=== PATIENT | female | born 1940 | race Caucasian/White ===

== ENCOUNTER → 2023-12-12 10:09 | Outpatient (REF) | payer OTHER, SELFPAY | LOC: PAVMRI 10:09 | PROVIDERS: ATTENDING PHYSICIAN Specialist; FAMILY PHYSICIAN Internal Medicine | DX: M54.16 Radiculopathy, lumbar region (principal) | CPT/HCPCS: 72148 ==

== ENCOUNTER → 2024-04-13 15:04 | Outpatient (REF) | payer OTHER, SELFPAY | LOC: RCS 15:04 | PROVIDERS: ATTENDING PHYSICIAN Internal Medicine Cardiovascular Disease; FAMILY PHYSICIAN Internal Medicine | DX: R00.2 Palpitations (principal); I25.10 Atherosclerotic heart disease of native coronary artery without angina pectoris; I10 Essential (primary) hypertension | CPT/HCPCS: 93005 ==

== ENCOUNTER → 2024-05-01 09:07 | Outpatient (REF) | payer OTHER, SELFPAY | LOC: RCS 09:07 | PROVIDERS: ATTENDING PHYSICIAN Internal Medicine Cardiovascular Disease; FAMILY PHYSICIAN Internal Medicine | DX: R00.2 Palpitations (principal) | CPT/HCPCS: 93225; 93226 ==

== ENCOUNTER → 2024-08-11 10:06 | Outpatient (REF) | payer OTHER, SELFPAY | LOC: RCS 10:06 | PROVIDERS: ATTENDING PHYSICIAN Student in an Organized Health Care Education/Training Program; FAMILY PHYSICIAN Internal Medicine | DX: I49.3 Ventricular premature depolarization (principal) | CPT/HCPCS: 93225; 93226 ==

== ENCOUNTER → 2024-10-21 08:49 | Outpatient (REF) | payer OTHER, SELFPAY | LOC: HWWDC 08:49 | PROVIDERS: ATTENDING PHYSICIAN Family Medicine | DX: Z12.31 Encounter for screening mammogram for malignant neoplasm of breast (principal); Z78.0 Asymptomatic menopausal state | CPT/HCPCS: 77063; 77067; 77080 ==

== ENCOUNTER → 2025-05-10 13:56 | Outpatient (REF) | payer OTHER, SELFPAY | LOC: HWRAD 13:56 | PROVIDERS: ATTENDING PHYSICIAN Internal Medicine Endocrinology, Diabetes & Metabolism; FAMILY PHYSICIAN Internal Medicine | DX: I25.10 Atherosclerotic heart disease of native coronary artery without angina pectoris (principal); R06.00 Dyspnea, unspecified; E06.3 Autoimmune thyroiditis | CPT/HCPCS: 76536; 93306 ==

== ENCOUNTER → 2025-09-01 14:10 | Outpatient (REF) | payer OTHER, SELFPAY ==
[2025-09-01 14:57] LABS: Urine Character Slightly Cloudy (Clear)
[2025-09-01 15:03] LABS: Urine Squamous Cell 0-2 /LPF (Few); Urine White Cell 50-60 /HPF (0-5)
== END ==
LOC: REG 14:10
PROVIDERS: ATTENDING PHYSICIAN Obstetrics & Gynecology; FAMILY PHYSICIAN Internal Medicine
DX: N39.0 Urinary tract infection, site not specified (principal)
CPT/HCPCS: 81003; 81015; 87077; 87086; 87186

== ENCOUNTER 2025-09-04 17:48 | Emergency (ER) | payer OTHER, SELFPAY ==
[2025-09-04 17:53] VITALS: BP 146/71
[2025-09-04 18:10] LABS: Hematocrit 39.0 % (37.0-47.0); Hemoglobin 13.8 g/dL (12.0-16.0); Mean Corp Hgb Conc. 35.4 g/dL (33.0-37.0); Mean Corpuscular Volume 84.1 fL (81.0-99.0); Nucleated Red Blood Cells % 0 %; Platelet Count 141 10^3/uL (130-400); Red Cell Dist. Width 13.4 % (11.5-14.5)
[2025-09-04 18:32] LABS: COVID-19 Antigen Negative (Negative)
[2025-09-04 18:35] LABS: ALT (SGPT) 23 U/L (0-35); AST (SGOT) 27 U/L (14-36); Albumin 3.8 g/dl (3.5-5.0); Alkaline Phosphatase 83 U/L (38-126); Blood Urea Nitrogen 29 mg/dl (7-17); Calcium 9.0 mg/dl (8.4-10.2); Carbon Dioxide 24 mmol/L (22-30); Chloride 95 mmol/L (98-107); Glucose 131 mg/dl (70-99); Potassium 3.1 mmol/L (3.5-5.1); Sodium 129 mmol/L (135-145); Total Protein 6.7 g/dl (6.3-8.2); eGFR 55.55
[2025-09-04] MEDS: ZOFRAN ODT (ORALLY DISINTEGRATING) 4 MG PO ×2 (19:32→23:03)
[2025-09-04 20:16] VITALS: BMI 23.8
--- NOTE | 2025-09-04 20:55 | ED.GENMED ---
History of Present Illness
General
Chief Complaint: Cold/Flu/URI Symptoms
Source: patient
Exam Limitations: none
Time Seen by Provider: 09/04/25 20:07
Nursing documentation reviewed up to this point in time: agreed with
History of Present Illness
History of Present Illness:
85-year-old female past ministry of CHF hypertension hyperlipidemia, CAD status post multiple stents presenting to the emergency department today with concerns of nausea vomiting cough as well as chills over the past 2 days. Has had some nasal
congestion as well. Symptoms have been persisting she denies any worsening denies any specific chest pain other than occasionally when coughing. Denies significant shortness of breath. Has had decreased appetite and decreased oral intake.
Past History
Past History
ED Past Medical History: CAD, Cancer, COPD, GERD, HTN, Hypercholesterolemia, MT and Hypothyroidism
ED Past Surgical History: Cardiac (Stents), Gynecological (Hysterectomy) and Other (Partial cystectomy)
Social History
Tobacco: Former smoker
Alcohol: Occasional
Personal:
Living: with family
Review of Systems
Review of Systems
Allergies reviewed?: Yes
All Other Systems: ROS reviewed and negative except as documented in HPI and ROS
Phy Exam
Physical Exam
Physical Exam:
GENERAL: Alert , in no apparent distress
EYE: pupils equal and reactive
NECK: Supple, no significant adenopathy.
ENT: Swollen boggy nasal turbinates, o/p clr, mmm.
CARDIAC: Regular rate and rhythm .
LUNGS: Clear breath sounds bilaterally, no acute respiratory distress, no wheezes/rales/rhonchi
ABDOMEN: Soft, without focal tenderness, no r/g, no cvat
NEUROLOGICAL: Alert and oriented, no focal neuro deficits
SKIN: Warm and dry, skin intact.
MUSCULOSKELETAL: No edema, well perfused.
PSYCH: Normal and appropriate interaction.
Course
Orders/Labs/Results
Orders:
Orders
09/04/25 18:00
COVID-19 Antigen Urgent
Source: Nasal Swab
INF RAPID [Influenza A+B Rapid Molecular] Urgent
CHIDI Source: Nasal Swab
Specimen Description:
09/04/25 18:04
Complete Blood Count/With Diff Urgent
Comprehensive Metabolic Panel Urgent
09/04/25 19:27
Ondansetron HCl [Zofran] 4 mg .ROUTE .STK-MED ONE
09/04/25 19:29
Ondansetron Orally Disint [Zofran Odt (Orally Disintegrating)] 4 mg PO NOW STA
09/04/25 20:38
EKG [Electrocardiogram (*1)] Urgent
Reason for Study: Fatigue / Weakness
EKG- Treatment ONCE
Chest [CR Chest - 2 Views ] Urgent
Comment:
Reason For Exam: cough efever
09/04/25 22:44
Ondansetron Orally Disint [Zofran Odt (Orally Disintegrating)] 4 mg PO NOW STA
Abnormal Lab Results
09/04/25
18:04
WBC 20.7 H 10^3/uL
(4.8-10.8)
Abs Immat Gran (auto) 0.1 H 10^3/uL
(0-0.05)
Absolute Neuts (auto) 17.9 H 10^3/uL
(1.4-6.5)
Absolute Lymphs (auto) 0.9 L 10^3/uL
(1.2-3.4)
Absolute Monos (auto) 1.7 H 10^3/uL
(0.1-0.6)
Neutrophils % 86.7 H %
(42.2-75.2)
Lymphocytes % 4.5 L %
(20.5-51.1)
Sodium 129 L mmol/L
(135-145)
Potassium 3.1 L mmol/L
(3.5-5.1)
Chloride 95 L mmol/L
(98-107)
BUN 29 H mg/dl
(7-17)
Glucose 131 H mg/dl
(70-99)
09/04/25 18:04
09/04/25 18:04
Vital Signs
Initial and Last Documented VS:
Initial Vital Signs
Temp Pulse Resp BP Pulse Ox
99.7 F 97 18 146/71 93
09/04/25 17:53 09/04/25 17:53 09/04/25 17:53 09/04/25 17:53 09/04/25 17:53
Last Documented Vital Signs
Temp Pulse Resp BP Pulse Ox
99.7 F 81 16 146/71 96
09/04/25 17:53 09/04/25 20:16 09/04/25 20:16 09/04/25 17:53 09/04/25 20:58
MDM/Problems Addressed
MDM/Problems Addressed:
85-year-old female presenting with concerns of nausea vomiting cough chills over the past 2 days. On arrival vital signs showing slight elevation of temperature of 99.7 but otherwise pulse ox in the mid 90s heart rate normal slightly elevated blood
pressure. Labs are obtained showing white count 20.7. Other labs showing slightly low sodium level and potential dehydration with BUN to creatinine level ratio elevated. Otherwise here patient was watched for multiple hours in no distress able to
tolerate by mouth vital signs remaining normal in the 80s heart rate respiratory rate in the teens blood pressure normal pulse ox in the high 90s. Chest x-ray did not show any emergent findings only EKG without emergent findings labs were discussed
with the patient indicating some degree of dehydration and decreased oral intake but she was able to tolerate by mouth here well. She was advised for significant increase in electrolyte intake and advised for close outpatient follow-up. Return
precautions were given.
*Pulse Oximetry
SaO2: 96
Oxygen Mode of Delivery: Room air
Patient hypoxic: no (96)
*Critical Care Note
Total Time (30-74mins, 75-104mins- exclusive of procedures): Not Applicable
ED Attending Note
-
Portions of this chart may have been created with voice recognition software.� Occasional wrong word or��sound alike� substitutions may have occurred due to the inherent limitations of voice recognition software.
Discharge Plan
Departure
Patient Disposition: Home (Routine Discharge)
Date of Disposition: 09/04/25
Time of Disposition: 23:07
Patient with high blood pressure during this ER visit?: No
Condition: Good
Covid-19: Not Applicable
Discharge Problem:
Acute viral syndrome
Instructions: Viral Syndrome (DC)
Prescriptions:
New
ondansetron 4 mg tablet,disintegrating
4 mg PO Q6H PRN (Reason: nausea and vomiting) Qty: 7 0RF
No Action
ezetimibe 10 MG tablet
10 mg PO QPM
nitroglycerin 0.4 MG tablet, sublingual
0.4 mg sublingual [id number] PRN (Reason: chest pain)
amlodipine 5 MG tablet
5 mg PO DAILY
aspirin 81 MG tablet,delayed release (DR/EC)
81 mg PO DAILY
rosuvastatin 20 MG tablet
20 mg PO QPM
cetirizine 10 MG tablet
10 mg PO DAILY
cholecalciferol (vitamin D3) [D3 DOTS] 50 MCG tablet
50 mcg PO DAILY
levothyroxine [Tirosint] 88 MCG capsule
88 mcg PO DAILY
flaxseed-omega3,6,9-fatty acid 1 EACH capsule
1,300 mg PO BID
Patient Comments:
1000 or 1200 mg bid per pt
Bifidobacterium infantis [Align (B.infantis)] 4 MG capsule
4 mg PO DAILY
Referrals:
Gita Andujar MD [Family Provider, Internal Medicine]
Activity Restrictions/Additional Instructions:
You came to the emergency department today with concerns of symptoms likely consistent with a viral syndrome. Please drink plenty of fluids to ensure that you did not develop any electrolyte issues. Please make sure there is electrolytes and
follow-up closely with a primary care doctor within the next 1 to 2 weeks for repeated labs. Return for any worsening, new or concerning symptoms.
Interventions
Interventions:
*General Assessment Last Done: 09/04/25 20:17
*Neglect/Abuse Screening Last Done: 09/04/25 20:17
*ED COVID-19 Vaccine History Last Done: 09/04/25 20:17
*ED Influenza Vaccine History Last Done: 09/04/25 20:17
[facility] Risk Assessment Tool Last Done: 09/04/25 20:16
*Risk Screen - Suicide (C-SSRS) Last Done: 09/04/25 20:17
ED- Pulmonary Assessment Last Done: 09/04/25 20:18
Discharge Date and Time
Print Language: MONGOLIAN
== END 2025-09-04 23:20 | disposition home or self-care (01) ==
LOC: EMR 17:48
PROVIDERS: Emergency Medicine; EMERGENCY PHYSICIAN Emergency Medicine; FAMILY PHYSICIAN Internal Medicine
DX: B34.9 Viral infection, unspecified (principal); E86.0 Dehydration; E87.1 Hypo-osmolality and hyponatremia; I25.10 Atherosclerotic heart disease of native coronary artery without angina pectoris; I11.0 Hypertensive heart disease with heart failure; I50.9 Heart failure, unspecified; E78.00 Pure hypercholesterolemia, unspecified; I25.2 Old myocardial infarction; J44.9 Chronic obstructive pulmonary disease, unspecified; E03.9 Hypothyroidism, unspecified; K21.9 Gastro-esophageal reflux disease without esophagitis; Z79.82 Long term (current) use of aspirin; Z95.5 Presence of coronary angioplasty implant and graft; Z87.891 Personal history of nicotine dependence
CPT/HCPCS: 99284; 71046; 80053; 85025; 87502; 87811; 93005

== ENCOUNTER 2025-09-08 07:06 | Inpatient (IN) | payer OTHER, SELFPAY ==
[2025-09-07 17:54] VITALS: BP 133/62
--- NOTE | 2025-09-07 20:04 | ED.GENMED ---
History of Present Illness
<Karime Rincon PA-C - Last Filed: 09/08/25 00:33>
General
Chief Complaint: Abdominal Symptoms
Source: patient and records
Exam Limitations: none
Time Seen by Provider: 09/07/25 19:47
History of Present Illness
History of Present Illness:
85yoF with a history of coronary artery disease, hypertension, hyperlipidemia, hypothyroidism, and overactive bladder presenting with her son and [id number] for evaluation of generalized weakness. Symptoms initially started 6 days ago. She
reports nausea and vomiting and has been unable to tolerate any p.o. intake. She was seen in the ED on 09/04 for the symptoms and was ultimately discharged with a diagnosis of acute viral syndrome and given a prescription for Zofran. Symptoms
continue to worsen and she has not kept down any fluids. She is increasingly weak and is now unable to ambulate without assistance. Her family members talk to her on the phone today and she sounded incoherent so they brought her to the ED for
evaluation. She reports objective fevers but has not checked her temperature. She denies any diarrhea, chest pain, shortness of breath.
Past History
<Karime Rincon PA-C - Last Filed: 09/08/25 00:33>
Past History
ED Past Medical History: CAD, Cancer, COPD, GERD, HTN, Hypercholesterolemia, HI and Hypothyroidism
ED Past Surgical History: Cardiac (Stents), Gynecological (Hysterectomy) and Other (Partial cystectomy)
Social History
Tobacco: Former smoker
Alcohol: Occasional
Personal:
Living: with family
Phy Exam
<Karime Rincon PA-C - Last Filed: 09/08/25 00:33>
Physical Exam
Physical Exam:
Ill appearing, non-toxic. Dry mucous membranes
General Physical Exam
General Presentation: no apparent distress
General Skin: warm and dry
General Habitus: normal and elderly
General Mental: alert
General Hydration: dry mucous membranes
ENT Exam
ENT Exam: normocephalic
Cardiovascular Exam
Cardiovascular Exam: regular rate/rhythm
Pulmonary Exam
Pulmonary Exam: lungs clear, no respiratory distress, no rales, no crackles, no rhonchi and no wheezing
Gastrointestinal Exam
Gastrointestinal Exam: soft, non distended and other (+Tenderness in RUQ and epigastrium. No rebound or guarding. )
Neurological Exam
Neurological Exam: alert
[place] Coma Scale
Eye Opening: Spontaneous
Verbal Response: Oriented
Motor Response: Obeys Commands
GCS Total Score: 15
Skin Exam
Skin Exam: normal color and warm/dry
Psychiatric Exam
Psychiatric Exam: normal mood/affect
Course
harpal;Karime Rincon PA-C - Last Filed: 09/08/25 00:33>
Orders/Labs/Results
Orders:
Orders
09/07/25 20:02
Electrocardiogram (*1) Urgent
Reason for Study: Fatigue / Weakness
EKG- Treatment ONCE
0.9% Sodium Chloride 1000 ml [Nss] 1,000 ml IV BOLUS
US Abdomen Complete/Upper Urgent
Comment:
Reason For Exam: RUQ pain, vomiting
09/07/25 20:19
Complete Blood Count/With Diff Urgent
Comprehensive Metabolic Panel Urgent
Lactate Level [Lactic Acid] Urgent
Lipase Urgent
Magnesium Urgent
Troponin I Urgent
09/07/25 21:13
Potassium Chloride [KCl] 60 meq PO NOW STA
09/07/25 21:14
Potassium Chloride 10% Elixir [KCl Elixir] 60 meq TUBE NOW STA
09/07/25 22:52
CT Abd/pelvis W Iv Cont Urgent
Comment:
Reason For Exam: vomiting, upper abd pain
09/07/25 23:29
Admit/Transfer Patient As Directed
Co-Sign Provider:
Level of Care: Observation services
Assign to:: Telemetry
Physician / Group: kierra
Diagnosis: gastritis, hypovolemia
Reason for Telemetry: Other
Other Reason for Telemetry: hypokalemia
Date to Stop Telemetry: 09/09/25
Time to Stop Telemetry: 11:00
09/07/25 23:30
PRN Pain Medication Management As Directed
May give lesser potent ordered pain med per pt: Yes
preference::
Protocol:: Medication orders for pain may be administered in a
manner that supports deferring to patient preference
when the pt is:
- Requesting an ordered lesser potent pain medication.
Least to most potent pain medications are defined
as: acetaminophen < NSAID < tramadol < opioids
(morphine, oxycodone, hydromorphone).
- Requesting a lesser dose of the same medication IF
ORDERED.
- Requesting a less intrusive route of administration
if both routes are prescribed by the provider (PO <
IV).
09/07/25 23:33
Code Status As Directed
Resuscitation Status: Full Code
09/07/25 23:50
Urinalysis Reflex To Culture Urgent
Date Specimen was Collected: 09/07/25
Time Specimen was Collected: 23:50
Urine Microscopic Reflex Cult Urgent
Urine Culture Urgent
CHIDI Source: U
Specimen Description:
Date Specimen was Collected: 09/07/25
Time Specimen was Collected: 23:50
09/09/25 11:00
DC Protocol for Telemetry ONCE
Abnormal Lab Results
09/07/25 09/07/25
20:19 23:50
WBC 18.4 H 10^3/uL
(4.8-10.8)
MPV 11.1 H fL
(7.4-10.4)
Abs Immat Gran (auto) 0.1 H 10^3/uL
(0-0.05)
Absolute Neuts (auto) 16.6 H 10^3/uL
(1.4-6.5)
Absolute Lymphs (auto) 0.5 L 10^3/uL
(1.2-3.4)
Absolute Monos (auto) 1.1 H 10^3/uL
(0.1-0.6)
Immature Gran % 0.8 H %
(0-0.5)
Neutrophils % 90.2 H %
(42.2-75.2)
Lymphocytes % 2.7 L %
(20.5-51.1)
Sodium 126 L mmol/L
(135-145)
Potassium 2.9 L mmol/L
(3.5-5.1)
Chloride 89 L mmol/L
(98-107)
BUN 44 H mg/dl
(7-17)
Creatinine 1.3 H mg/dL
(0.6-1.0)
Glucose 120 H mg/dl
(70-99)
Magnesium 2.4 H mg/dl
(1.6-2.3)
AST 51 H U/L
(14-36)
Albumin 3.4 L g/dl
(3.5-5.0)
Urine Ketones 1+ A
(Negative)
Ur Occult Blood Reflex 4+ A
(Negative)
Urine Nitrite (Reflex) Positive A
(Negative)
Leukocyte Esterase Rfl 3+ A
(Negative)
Urine RBC 3-6 A /HPF
(0-2)
Urine WBC (Reflex) >100 A /HPF
(0-5)
Urine Bacteria (Reflex) Many A
(Negative)
Urine Albumin (Reflex) 3+ A
(Neg - Trace)
09/07/25 20:19
09/07/25 20:19
Vital Signs
Initial and Last Documented VS:
Initial Vital Signs
Temp Pulse Resp BP Pulse Ox
98.2 F 107 20 133/62 95
09/07/25 17:54 09/07/25 17:54 09/07/25 17:54 09/07/25 17:54 09/07/25 17:54
Last Documented Vital Signs
Temp Pulse Resp BP Pulse Ox
98.2 F 71 18 137/53 95
09/07/25 17:54 09/07/25 21:15 09/07/25 21:15 09/07/25 21:00 09/07/25 20:06
<Justin Rodríguez MD - Last Filed: 09/07/25 22:55>
Orders/Labs/Results
Orders:
Orders
09/07/25 20:02
Electrocardiogram (*1) Urgent
Reason for Study: Fatigue / Weakness
EKG- Treatment ONCE
0.9% Sodium Chloride 1000 ml [Nss] 1,000 ml IV BOLUS
US Abdomen Complete/Upper Urgent
Comment:
Reason For Exam: RUQ pain, vomiting
09/07/25 20:19
Complete Blood Count/With Diff Urgent
Comprehensive Metabolic Panel Urgent
Lactate Level [Lactic Acid] Urgent
Lipase Urgent
Magnesium Urgent
Troponin I Urgent
09/07/25 21:13
Potassium Chloride [KCl] 60 meq PO NOW STA
09/07/25 21:14
Potassium Chloride 10% Elixir [KCl Elixir] 60 meq TUBE NOW STA
09/07/25 22:52
CT Abd/pelvis W Iv Cont Urgent
Comment:
Reason For Exam: vomiting, upper abd pain
09/07/25 23:29
Admit/Transfer Patient As Directed
Co-Sign Provider:
Level of Care: Observation services
Assign to:: Telemetry
Physician / Group: kierra
Diagnosis: gastritis, hypovolemia
Reason for Telemetry: Other
Other Reason for Telemetry: hypokalemia
Date to Stop Telemetry: 09/09/25
Time to Stop Telemetry: 11:00
09/07/25 23:30
PRN Pain Medication Management As Directed
May give lesser potent ordered pain med per pt: Yes
preference::
Protocol:: Medication orders for pain may be administered in a
manner that supports deferring to patient preference
when the pt is:
- Requesting an ordered lesser potent pain medication.
Least to most potent pain medications are defined
as: acetaminophen < NSAID < tramadol < opioids
(morphine, oxycodone, hydromorphone).
- Requesting a lesser dose of the same medication IF
ORDERED.
- Requesting a less intrusive route of administration
if both routes are prescribed by the provider (PO <
IV).
09/07/25 23:33
Code Status As Directed
Resuscitation Status: Full Code
09/07/25 23:50
Urinalysis Reflex To Culture Urgent
Date Specimen was Collected: 09/07/25
Time Specimen was Collected: 23:50
Urine Microscopic Reflex Cult Urgent
Urine Culture Urgent
CHIDI Source: U
Specimen Description:
Date Specimen was Collected: 09/07/25
Time Specimen was Collected: 23:50
09/09/25 11:00
DC Protocol for Telemetry ONCE
Abnormal Lab Results
09/07/25 09/07/25
20:19 23:50
WBC 18.4 H 10^3/uL
(4.8-10.8)
MPV 11.1 H fL
(7.4-10.4)
Abs Immat Gran (auto) 0.1 H 10^3/uL
(0-0.05)
Absolute Neuts (auto) 16.6 H 10^3/uL
(1.4-6.5)
Absolute Lymphs (auto) 0.5 L 10^3/uL
(1.2-3.4)
Absolute Monos (auto) 1.1 H 10^3/uL
(0.1-0.6)
Immature Gran % 0.8 H %
(0-0.5)
Neutrophils % 90.2 H %
(42.2-75.2)
Lymphocytes % 2.7 L %
(20.5-51.1)
Sodium 126 L mmol/L
(135-145)
Potassium 2.9 L mmol/L
(3.5-5.1)
Chloride 89 L mmol/L
(98-107)
BUN 44 H mg/dl
(7-17)
Creatinine 1.3 H mg/dL
(0.6-1.0)
Glucose 120 H mg/dl
(70-99)
Magnesium 2.4 H mg/dl
(1.6-2.3)
AST 51 H U/L
(14-36)
Albumin 3.4 L g/dl
(3.5-5.0)
Urine Ketones 1+ A
(Negative)
Ur Occult Blood Reflex 4+ A
(Negative)
Urine Nitrite (Reflex) Positive A
(Negative)
Leukocyte Esterase Rfl 3+ A
(Negative)
Urine RBC 3-6 A /HPF
(0-2)
Urine WBC (Reflex) >100 A /HPF
(0-5)
Urine Bacteria (Reflex) Many A
(Negative)
Urine Albumin (Reflex) 3+ A
(Neg - Trace)
09/07/25 20:19
09/07/25 20:19
Vital Signs
Initial and Last Documented VS:
Initial Vital Signs
Temp Pulse Resp BP Pulse Ox
98.2 F 107 20 133/62 95
09/07/25 17:54 09/07/25 17:54 09/07/25 17:54 09/07/25 17:54 09/07/25 17:54
Last Documented Vital Signs
Temp Pulse Resp BP Pulse Ox
98.2 F 71 18 137/53 95
09/07/25 17:54 09/07/25 21:15 09/07/25 21:15 09/07/25 21:00 09/07/25 20:06
<Karime Rincon PA-C - Last Filed: 09/08/25 00:33>
MDM/Problems Addressed
Differential Diagnosis Includes:
85yoF here with ongoing n/v. Seen in ED 3 days ago for the same. Symptoms worsening and now feeling weak. HR 107 in triage, remainder of vitals unremarkable. Mucous membranes dry and she is ill appearing. RUQ and epigastric tenderness on exam
without signs of peritonitis. Differential diagnosis includes: Dehydration, SANDY, gastritis, cholecystitis, pancreatitis
Initial ED plan: Check abdominal labs, magnesium, lactate, troponin/EKG, UA, and upper abdominal ultrasound. IV fluid bolus ordered.
<Karime Rincon PA-C - Last Filed: 09/08/25 00:33>
*Pulse Oximetry
SaO2: 95
Oxygen Mode of Delivery: Room air
Patient hypoxic: no
*EKG
Interpreted by ED Provider?: Yes
EKG Intrepretation Date: 09/07/25
Heart Rate: 74
Rate: normal
Rhythm: sinus
[place]: normal axis
Interval: normal interval
QRS Pattern: normal QRS
Ischemia: non-specific ST changes
*Critical Care Note
Total Time (30-74mins, 75-104mins- exclusive of procedures): Not Applicable
<Karime Rincon PA-C - Last Filed: 09/08/25 00:33>
Update Note
Update Note:
Labs reveal a leukocytosis with a white count of 18.4 which has improved from labs a few days ago. Sodium 126, potassium 2.9, and chloride 89. Creatinine 1.3 which is above baseline of 0.8. Ultrasound shows gallbladder sludge but otherwise
unremarkable. A follow-up CT was added and preliminary vision radiology report shows evidence of pyelonephritis. UA is nitrite positive with greater than 100 WBCs. Blood cultures and IV Rocephin ordered. Patient admitted for further management.
ED Attending Note
<Karime Rincon PA-C - Last Filed: 09/08/25 00:33>
-
Portions of this chart may have been created with voice recognition software.� Occasional wrong word or��sound alike� substitutions may have occurred due to the inherent limitations of voice recognition software.
<Justin Rodríguez MD - Last Filed: 09/07/25 22:55>
ED Attending Note
Patient seen and examined by attending physician: Yes
ED Attending Note:
I have seen and evaluated the patient with a [id number] encounter. I have spoken to the advance practicer provider and involved in the medical history, the physical exam, medical decision making.
Evaluation and management service: agree unless noted differently below.
Results interpretation: agree unless noted differently below.
Focused HPI: 85-year-old female with history as noted presents to the ER for evaluation of nausea, vomiting, abdominal discomfort and severe weakness. Of note patient was seen in the emergency room a few days ago with similar symptoms thought to be
from viral illness. Discharged home but since then she has had increasing weakness and continued to have nausea and vomiting and over the past day or 2 has developed upper abdominal discomfort. No chest pain. No fever. No diarrhea. She denies
any history of similar.
Physical exam: Awake and alert, appears mildly uncomfortable. Triage tachycardia resolved by my assessment, rest of vitals are all normal. Her abdomen is soft, mildly tender across the upper abdomen and in the in periumbilical region. No
peritoneal signs. She does have dry mucous membranes.
Medical Decision Makin-year-old female returns to the ER with continued nausea and vomiting now with also upper abdominal discomfort and severe weakness. Vitals and exam as above. Labs today show marked leukocytosis 18.4 although improved
from a few days ago. Predominant neutrophils. Chemistry shows hyponatremia likely hypovolemic with hypokalemia and renal insufficiency. Provide IV potassium, IV fluid resuscitation. Upper abdominal ultrasound shows gallbladder sludge no other
acute abnormalities. Will check CT abdomen, plan likely for admission pending imaging.
Discharge Plan
Departure
Patient Disposition: Admit
Date of Disposition: 09/07/25
Time of Disposition: 23:07
Presentation/result/management discussed w/ accepting MD/DO: Hospitalist
Discharge Problem:
Acute kidney injury, Hyponatremia, Hypokalemia, Vomiting, Acute pyelonephritis
Interventions
Interventions:
*General Assessment Last Done: 09/07/25 17:54
*Neglect/Abuse Screening Last Done: 09/07/25 17:54
[facility] Risk Assessment Tool Last Done: 09/07/25 21:20
*Risk Screen - Suicide (C-SSRS) Last Done: 09/07/25 17:54
XY-Lpkmnj-Chpjylywpy Assessment Last Done: 09/07/25 23:44
[2025-09-07] MEDS: NSS 1000 IV (20:21)
[2025-09-07 20:24] VITALS: BP 146/59
[2025-09-07 20:34] LABS: Hematocrit 38.2 % (37.0-47.0); Hemoglobin 13.7 g/dL (12.0-16.0); Mean Corp Hgb Conc. 35.9 g/dL (33.0-37.0); Mean Corpuscular Volume 83.8 fL (81.0-99.0); Nucleated Red Blood Cells % 0 %; Platelet Count 132 10^3/uL (130-400); Red Cell Dist. Width 13.4 % (11.5-14.5)
[2025-09-07 20:56] LABS: Troponin I 0.020 ng/ml
[2025-09-07 21:00] VITALS: BP 137/53
[2025-09-07 21:09] LABS: ALT (SGPT) 32 U/L (0-35); AST (SGOT) 51 U/L (14-36); Albumin 3.4 g/dl (3.5-5.0); Alkaline Phosphatase 106 U/L (38-126); Blood Urea Nitrogen 44 mg/dl (7-17); Calcium 8.7 mg/dl (8.4-10.2); Carbon Dioxide 27 mmol/L (22-30); Chloride 89 mmol/L (98-107); Glucose 120 mg/dl (70-99); Lipase 182 U/L (23-300); Magnesium 2.4 mg/dl (1.6-2.3); Potassium 2.9 mmol/L (3.5-5.1); Sodium 126 mmol/L (135-145); Total Protein 6.4 g/dl (6.3-8.2); eGFR 40.55
[2025-09-07] MEDS: KCL ELIXIR 60 MEQ TUBE (21:41)
--- NOTE | 2025-09-07 23:13 | HPS.HSE ---
Family Physician
-
Family Physician: Gita Andujar
Chief Complaint
-
Abdominal symptoms
History of Present Illness
This is a 85-year-old male with past medical history significant for CAD, hypertension, hyperlipidemia, hypothyroid, COPD not on home O2, psoriasis presents to the emergency department for persistent nausea and vomiting.
Patient was seen in the emergency department 3 days ago with vomiting thought to have gastritis. He had a chest x-ray which was unremarkable. Her labs were unremarkable. She was discharged but she has now continued to vomiting and has been unable
to tolerate p.o. She feels weak. Patient reports symptoms has been ongoing for about 1 week now. After returning home from the ED 2 days ago she continues to feel weak and continues to have nausea vomiting. She denies any diarrhea. She is
unable to tolerate p.o. She now has some dry heaving and is only bringing up phlegm. She had no bilious emesis. She denies any melena or hematochezia. She has no coffee-ground emesis. She denies fevers or chills. She denies any flank pain.
She denies dysuria urinary frequency urgency or incontinence.
In the emergency department blood pressure was 137/83, pulse of 71 and oxygen saturation 95% on room air. Temperature was 90.2. ECG shows a normal sinus rhythm at a rate of 74. Troponin was 0.02.
White count was 18.4 hemoglobin 13.7 and plate count of 132. Sodium was 186 potassium 2.9 BUN 40 and creatinine 1.3. Glucose was 120.
LFTs were unremarkable. Lipase was negative. Abdominal ultrasound shows gallbladder sludge but no other focal abnormalities.
CT of the abdomen pelvis is pending.
Medical History
Past Medical History
Past Medical History: Reports Other
Additional Past Medical History:
Hypertension
Hypothyroid
Hyperlipidemia
CAD status post stenting x 3
COPD not on home O2
Remote bladder cancer 1985
GERD
Psoriasis
Past Surgical History: Reports Other
Additional Past Surgical History:
Breast biopsy
Partial resection of the bladder
Social History
Tobacco: Non-smoker
Alcohol: None
Drug: None
Family History
Family History: Not pertinent
Allergies / Home Medications
Allergies reflects when Allergies were last updated in [employer].
Home Medications with original date entered in [employer]
Allergy/Medication List:
Allergies
Allergy/AdvReac Type Severity Reaction Status Date / Time
JOHNNY Inhibitors Allergy angioedema Verified 09/07/25 17:54
cephalexin Allergy upset Verified 09/07/25 17:54
stomach
Cephalosporins Allergy Pharmacy Verified 09/07/25 17:54
to Review
codeine (Codeine) Allergy Unknown Verified 09/07/25 17:54
mometasone furoate Allergy Unknown Verified 09/07/25 17:54
narcotics Allergy Nausea Uncoded 09/07/25 17:54
Home Medications
ezetimibe 10 mg tablet 10 mg PO QPM 06/08/11
nitroglycerin 0.4 mg sublingual tablet 0.4 mg sublingual [id number] PRN chest pain 12/06/11
amlodipine 5 mg tablet 5 mg PO DAILY 09/20/16
aspirin 81 mg tablet,delayed release 81 mg PO DAILY 09/20/16
rosuvastatin 20 mg tablet 20 mg PO QPM 09/20/16
Bifidobacterium infantis 4 mg capsule (Align (B.infantis)) 4 mg PO DAILY 02/01/20
cetirizine 10 mg tablet 10 mg PO DAILY 02/01/20
cholecalciferol (vitamin D3) 50 mcg (2,000 unit) tablet (D3 DOTS) 50 mcg PO DAILY 02/01/20
flaxseed oil-omega 3,6,9-fatty acids 1,300 mg-670 mg-155 mg capsule 1,300 mg PO BID 02/01/20
levothyroxine 88 mcg capsule (Tirosint) 88 mcg PO DAILY 02/01/20
ondansetron 4 mg disintegrating tablet 4 mg PO Q6H PRN nausea and vomiting #7 tabs 09/04/25
Review of Systems
-
Constitutional: Reports No Symptoms
EENT: Reports No Symptoms
Respiratory: Reports No Symptoms
Cardiac: Reports No Symptoms
Abdomen/GI: Reports Abdominal Pain, Nausea and Vomiting
: Reports No Symptoms
Musculoskeletal: Reports No Symptoms
Skin: Reports No Symptoms
Neurological: Reports No Symptoms
Endocrine: Reports No Symptoms
Hematologic/Lymphatic: Reports No Symptoms
Psych: Reports No Symptoms
Physical Exam
Vital Signs
Vital Signs
Temp Pulse Resp BP Pulse Ox
98.2 F 71 18 137/53 95
09/07/25 17:54 09/07/25 21:15 09/07/25 21:15 09/07/25 21:00 09/07/25 20:06
Physical Exam
General: Well Developed, Well Nourished and No Apparent Distress
HEENT: NormoCephalic, Moist mucous membranes and Atraumatic
Respiratory: Clear
Cardiac: S1/S2 and Regular Rhythm; No Murmur or Rub
GI: Soft, Non Distended and Normal Bowel Sounds; No Organomegaly
Rectal: Deferred by Provider
Musculoskeletal: No Clubbing, No Cyanosis and No Edema
Skin: No Rash
Neuro: AO x 3 and Nonfocal/grossly intact
Laboratory Results
-
09/07/25 20:19
09/07/25 20:19
Laboratory Results
Lactic Acid 1.1 mmol/L (0.7-2.0) 09/07/25 20:19
Total Bilirubin 0.8 mg/dl (0.2-1.3) 09/07/25 20:19
AST 51 U/L (14-36) H 09/07/25 20:19
ALT 32 U/L (0-35) 09/07/25 20:19
Alkaline Phosphatase 106 U/L (38-126) 09/07/25 20:19
Troponin I 0.020 ng/ml 09/07/25 20:19
Lipase 182 U/L (23-300) 09/07/25 20:19
Data Reviewed
-
CT Scan: Report Reviewed by me
Ultrasound: Report Reviewed by me
Lab Data: Labs Reviewed by me
Impression/Plan
-
IMPRESSION:
Patient is a 85-year-old with past medical history significant for hypertension, hypothyroid, hyperlipidemia, CAD, COPD not on home O2 history of bladder cancer who presents to the emergency department with acute abdominal symptoms for the last 6
days including nausea vomiting and abdominal discomfort. Inability to tolerate p.o. for the last 6 days. Ultrasound shows biliary sludge but LFTs and lipase are normal. No signs of acute cholecystitis. She does have a leukocytosis to 18.4.
Sodium and potassium are low at 120 send 2.9 with increasing BUN and creatinine to 40 and 1.3 respectively. She is clearly hypovolemic and dehydrated. At this time we are waiting on a CT scan to rule out an acute process such as peritonitis or
obstruction. Her exam is benign, she has normal active bowel sounds throughout. She is nontoxic-appearing.
PLAN:
Nausea vomiting -suspect persistent gastritis symptoms in the setting of dehydration
� Ice chips and sips of liquids for now
� Pain control
� Antiemetics
� IV fluids
� Follow-up CT of the abdomen pelvis
CT scan showed pyelo and U/A with positive nit and LE
- urine cultures sent
- blood cultures sent
- started on IV ceftriaxone
Electrolyte abnormalities�hyponatremia, hypokalemia and elevated creatinine all suggestive of hypovolemia with reduced oral intake and gastric losses.
� IV fluids with normal saline and potassium supplementation
� Check magnesium level and supplement as needed
� Repeat sodium in a.m.
� Check urinary sodium and osmolarity
CAD
� Continue aspirin statin and ezetimibe
� Continue metoprolol succinate
COPD
� Albuterol as needed no evidence of acute exacerbation
Hypertension
� Continue amlodipine with hold parameters
� Hold hydrochlorothiazide for now
DVT prophylaxis�SCDs for now
CODE STATUS�full code
[2025-09-07 23:59] LABS: Urine Character Clear (Clear)
[2025-09-08] VITALS (8 sets, daily range): BP systolic 104–148; BP diastolic 48–66; PULSE 71–77; O2SAT 97
[2025-09-08 00:20] LABS: Urine White Cell >100 /HPF (0-5)
[2025-09-08] MEDS: ROCEPHIN 1000 MG IV (00:27)
[2025-09-08] MEDS: NSS with KCL 20 MEQ 1000 IV (02:06)
[2025-09-08] MEDS: ZOFRAN 4 MG IV (02:14)
--- NOTE | 2025-09-08 02:28 | PTCARENOTE ---
Pt arrived via stretcher and pulled over to bedside. Pt oriented to unit, Call davila within reach. Will continue POC.
[2025-09-08] MEDS: SYNTHROID 88 MCG PO (05:35)
[2025-09-08 07:26] LABS: Blood Urea Nitrogen 38 mg/dl (7-17); Calcium 8.3 mg/dl (8.4-10.2); Carbon Dioxide 23 mmol/L (22-30); Chloride 102 mmol/L (98-107); Glucose 94 mg/dl (70-99); Magnesium 2.4 mg/dl (1.6-2.3); Potassium 4.0 mmol/L (3.5-5.1); Sodium 128 mmol/L (135-145); eGFR 49.55
[2025-09-08 07:58] LABS: Hematocrit 33.8 % (37.0-47.0); Hemoglobin 12.0 g/dL (12.0-16.0); Mean Corp Hgb Conc. 35.5 g/dL (33.0-37.0); Mean Corpuscular Volume 85.8 fL (81.0-99.0); Platelet Count 133 10^3/uL (130-400); Red Cell Dist. Width 13.5 % (11.5-14.5)
[2025-09-08] MEDS: KCL 270 MEQ IV (09:19)
[2025-09-08] MEDS: NSS 1000 IV ×2 (09:21→17:31)
[2025-09-08] MEDS: ASPIR LOW (ENTERIC COATED) 81 MG PO (09:26)
[2025-09-08] MEDS: NORVASC 7.5 MG PO (09:26)
[2025-09-08] MEDS: STERILE WATER FOR INJECTION 10 ML IV ×2 (09:27→21:16)
[2025-09-08] MEDS: MAXIPIME 1000 MG IV (09:27)
[2025-09-08] MEDS: TYLENOL 1000 MG PO ×3 (09:28→21:15)
[2025-09-08] MEDS: TOPROL XL 25 MG PO (09:28)
--- NOTE | 2025-09-08 09:52 | W.PN.HOSP.TC ---
Today's Communication/Plan
-
.
Assessment / Plan
Assessment / Plan
Physical Exam
General: tired looking but not in Distress
HEENT: Normocephalic, Moist mucous membranes and Atraumatic
Respiratory: Clear, limited.
Cardiac: S1/S2
GI: Soft, Non Distended and Normal Bowel Sounds; she reports CVT on left side more than right
Rectal: no bleeding
Musculoskeletal: No Clubbing, No Cyanosis and No Edema
Skin: No Rash
Neuro: AO x 3 and Nonfocal/grossly intact
Psych: calm.
85-year-old with presented to the emergency department with severe UTI symptoms with abdominal symptom\\
A/P
# Gram-negative bacteremia with sepsis POA with SANDY/Leukocytosis, fever, hypokalemia, N/V due to right pyelonephritis
She still feeling tired, little less discomfort than admission
No abdominal pain. No nausea or vomiting
Continue care on telemetry floor
IV fluid
Tylenol around the clock to help with pain and fever
Change antibiotic to high-dose cefepime for bacteremia
Repeat blood culture
Monitor blood work, WBC count, temperature curve
CT scan did not show hydronephrosis or stone. Patient has history of stress incontinence/overactive bladder/intrinsic sphincter deficiency
#Hyponatremia,
Acute on chronic hypokalemia
Hold hydrochlorothiazide
Continue IV fluid, fluid restriction
# Severe hypokalemia
Replace and monitor
# Acute kidney injury, continue with IV fluid. Monitor for urinary retention
#CAD
No chest pain.
� Continue aspirin statin and ezetimibe
� Continue metoprolol succinate
COPD
� Albuterol as needed no evidence of acute exacerbation
#Hypertension
� Continue amlodipine with hold parameters
� Hold hydrochlorothiazide for now
DVT prophylaxis�SCDs for now
CODE STATUS�full code
Total time spent to see the patient, examine the patient, review data and lab results, discuss treatment plan with patient, her son, nursing staff around 55 minutes
Anticipated Discharge: > 48 hours
Subjective/Interval History
-
Date of Service: September 08, 2025
She is weak and tired
Bilateral flank discomfort but no severe pain
Objective Data
-
Labs:
Laboratory Results
09/08/25 09/08/25
06:38 11:00
WBC 16.2 H
Hgb 12.0
Hct 33.8 L
Plt Count 133
Sodium 128 L Pending
Potassium 4.0 D Pending
Chloride 102 Pending
Carbon Dioxide 23 Pending
BUN 38 H Pending
Creatinine 1.1 H Pending
Glucose 94 Pending
Calcium 8.3 L Pending
Vital Signs:
Vital Signs
Temp Pulse Resp BP Pulse Ox
98.7 F 75 16 133/62 95
09/08/25 07:30 09/08/25 07:30 09/08/25 07:30 09/08/25 07:30 09/08/25 07:30
I&O
09/07/25 09/08/25 09/09/25
06:59 06:59 06:59
Intake Total 720 / 720
Balance 720 / 720
--- NOTE | 2025-09-08 12:34 | CM ---
Patient seen bedside, initial assessment completed. Patient is a 85-year-old male with past medical history significant for CAD, hypertension, hyperlipidemia, hypothyroid, COPD not on home O2, psoriasis presents to the emergency department for
persistent nausea and vomiting.
Patient resides w/ her daughter in a [facility], 2 or 3 steps to enter. Patient is independent in all areas. No DME. Patient stated she is very active, participates in aerobics. Denies SNF/HC hx
Address, point of contact and insurance verified
PCP: Gita Andujar
Pharmacy: [facility]
Therapy assessed, recommending home health at discharge. Patient now IP status
Plan: Home w/ home health. Will discuss w/ patient
[2025-09-08 12:59] LABS: Blood Urea Nitrogen 37 mg/dl (7-17); Calcium 8.1 mg/dl (8.4-10.2); Carbon Dioxide 18 mmol/L (22-30); Chloride 102 mmol/L (98-107); Glucose 147 mg/dl (70-99); Potassium 4.2 mmol/L (3.5-5.1); Sodium 128 mmol/L (135-145); eGFR 55.55
--- NOTE | 2025-09-08 14:45 | PTCARENOTE ---
Patient states, 'I am feeling better and I am hungry.' Patient AAOx3, but forgetful and confused at times. Patient does not remember how to use the call davila for staff. Patient demonstrate understanding of call davila use, but continues to be
forgetful and attempts to climb OOB. Bed/chair alarm maintained as patient is weak and unsteady.
[2025-09-08] MEDS: ZETIA 10 MG PO (17:02)
[2025-09-08] MEDS: CRESTOR 20 MG PO (17:02)
[2025-09-08] MEDS: SENOKOT-S 2 TABLET PO (21:15)
[2025-09-08] MEDS: MAXIPIME 2000 MG IV (21:16)
[2025-09-09] VITALS (7 sets, daily range): BP systolic 120–150; BP diastolic 49–65; PULSE 68–78
[2025-09-09] MEDS: NSS 1000 IV (03:25)
[2025-09-09] MEDS: SYNTHROID 88 MCG PO (06:33)
[2025-09-09] MEDS: TOPROL XL 25 MG PO (08:31)
[2025-09-09] MEDS: ASPIR LOW (ENTERIC COATED) 81 MG PO (08:31)
[2025-09-09] MEDS: NORVASC 7.5 MG PO (08:32)
[2025-09-09] MEDS: TYLENOL 1000 MG PO ×3 (08:32→21:12)
--- NOTE | 2025-09-09 09:17 | W.PN.HOSP.TC ---
Today's Communication/Plan
-
.
Assessment / Plan
Assessment / Plan
Physical Exam
General: tired looking but not in Distress
HEENT: Normocephalic, Moist mucous membranes and Atraumatic
Respiratory: Clear, limited.
Cardiac: S1/S2
GI: Soft, Non Distended and Normal Bowel Sounds; she reports CVT on left side more than right
Rectal: no bleeding
Musculoskeletal: No Clubbing, No Cyanosis and No Edema
Skin: No Rash
Neuro: AO x 3 and Nonfocal/grossly intact
Psych: calm.
85-year-old with presented to the emergency department with severe UTI symptoms with abdominal symptom\\
A/P
# Gram-negative bacteremia with sepsis POA with SANDY/Leukocytosis, fever, hypokalemia, N/V due to right pyelonephritis
some improvement but expect few days to feel ill
No abdominal pain. No nausea or vomiting
Continue care on telemetry floor
can stop IV fluid
Tylenol around the clock to help with pain and fever
Change antibiotic to high-dose cefepime for bacteremia
Repeat blood culture is pending
Monitor blood work, WBC count, temperature curve
CT scan did not show hydronephrosis or stone. Patient has history of stress incontinence/overactive bladder/intrinsic sphincter deficiency
#Hyponatremia,
some improvement
will allow more fluid in diet but advised to control her intake
Acute on chronic hypokalemia
Hold hydrochlorothiazide
s/p IV fluid
cut back on fluid restriction
# Severe hypokalemia
Replaced and monitor
# Acute kidney injury, continue with IV fluid. Monitor for urinary retention
#CAD
No chest pain.
� Continue aspirin statin and ezetimibe
� Continue metoprolol succinate
COPD
� Albuterol as needed no evidence of acute exacerbation
#Hypertension
� Continue amlodipine with hold parameters
� Hold hydrochlorothiazide for now
DVT prophylaxis�SCDs for now
CODE STATUS�full code
Total time spent to see the patient, examine the patient, review data and lab results, discuss treatment plan with patient, her son, nursing staff around 57 minutes
Anticipated Discharge: > 48 hours
Subjective/Interval History
-
Date of Service: September 09, 2025
Objective Data
-
Labs:
Laboratory Results
09/09/25
06:00
WBC Pending
Hgb Pending
Hct Pending
Plt Count Pending
Sodium Pending
Potassium Pending
Chloride Pending
Carbon Dioxide Pending
BUN Pending
Creatinine Pending
Glucose Pending
Calcium Pending
Total Bilirubin Pending
AST Pending
ALT Pending
Alkaline Phosphatase Pending
Vital Signs:
Vital Signs
Temp Pulse Resp BP Pulse Ox
99.2 F 79 17 150/65 96
09/09/25 08:00 09/09/25 08:32 09/09/25 08:00 09/09/25 08:32 09/09/25 08:00
I&O
09/08/25 09/09/25 09/10/25
06:59 06:59 06:59
Intake Total 720 / 720
Balance 720 / 720
[2025-09-09] MEDS: STERILE WATER FOR INJECTION 10 ML IV ×2 (09:56→21:12)
[2025-09-09] MEDS: MAXIPIME 2000 MG IV ×2 (09:56→21:13)
[2025-09-09] MEDS: FLUSH (NSS) 2 FLUSH IV (10:05)
--- NOTE | 2025-09-09 10:25 | PTCARENOTE ---
Tele & IVF discontinued per md orders
[2025-09-09 10:26] LABS: Hematocrit 34.2 % (37.0-47.0); Hemoglobin 11.7 g/dL (12.0-16.0); Mean Corp Hgb Conc. 34.2 g/dL (33.0-37.0); Mean Corpuscular Volume 87.0 fL (81.0-99.0); Platelet Count 154 10^3/uL (130-400); Red Cell Dist. Width 14.1 % (11.5-14.5)
[2025-09-09 10:40] LABS: ALT (SGPT) 66 U/L (0-35); AST (SGOT) 125 U/L (14-36); Albumin 2.3 g/dl (3.5-5.0); Alkaline Phosphatase 126 U/L (38-126); Blood Urea Nitrogen 27 mg/dl (7-17); Calcium 8.0 mg/dl (8.4-10.2); Carbon Dioxide 20 mmol/L (22-30); Chloride 107 mmol/L (98-107); Glucose 90 mg/dl (70-99); Potassium 3.7 mmol/L (3.5-5.1); Sodium 131 mmol/L (135-145); Total Protein 5.1 g/dl (6.3-8.2); eGFR > 60.00
[2025-09-09] MEDS: CRESTOR 20 MG PO (17:33)
[2025-09-09] MEDS: ZETIA 10 MG PO (17:33)
[2025-09-09] MEDS: SENOKOT-S PO (21:12)
[2025-09-10] MEDS: SYNTHROID 88 MCG PO (05:07)
[2025-09-10 06:39] LABS: Hematocrit 36.7 % (37.0-47.0); Hemoglobin 12.6 g/dL (12.0-16.0); Mean Corp Hgb Conc. 34.3 g/dL (33.0-37.0); Mean Corpuscular Volume 86.6 fL (81.0-99.0); Platelet Count 192 10^3/uL (130-400); Red Cell Dist. Width 14.5 % (11.5-14.5)
[2025-09-10 06:57] LABS: Blood Urea Nitrogen 23 mg/dl (7-17); Calcium 8.2 mg/dl (8.4-10.2); Carbon Dioxide 22 mmol/L (22-30); Chloride 106 mmol/L (98-107); Glucose 89 mg/dl (70-99); Potassium 3.6 mmol/L (3.5-5.1); Sodium 133 mmol/L (135-145); eGFR > 60.00
[2025-09-10 07:40] VITALS: BP 155/72
[2025-09-10] MEDS: TYLENOL 1000 MG PO ×3 (08:31→21:01)
[2025-09-10] MEDS: NORVASC 7.5 MG PO (08:31)
[2025-09-10] MEDS: ASPIR LOW (ENTERIC COATED) 81 MG PO (08:32)
[2025-09-10] MEDS: TOPROL XL 25 MG PO (08:32)
[2025-09-10] MEDS: MIRALAX 17 GRAMS PO (08:48)
[2025-09-10] MEDS: STERILE WATER FOR INJECTION 10 ML IV ×2 (09:45→21:00)
[2025-09-10] MEDS: MAXIPIME 2000 MG IV ×2 (09:46→21:00)
--- NOTE | 2025-09-10 09:53 | W.PN.HOSP.TC ---
Today's Communication/Plan
-
likely dc in am on oral antibiotic
Assessment / Plan
Assessment / Plan
Physical Exam
General: tired looking but not in Distress
HEENT: Normocephalic, Moist mucous membranes and Atraumatic
Respiratory: Clear, limited.
Cardiac: S1/S2
GI: Soft, Non Distended and Normal Bowel Sounds; she reports CVT on left side more than right
Rectal: no bleeding
Musculoskeletal: No Clubbing, No Cyanosis and No Edema
Skin: No Rash
Neuro: AO x 3 and Nonfocal/grossly intact
Psych: calm.
85-year-old with presented to the emergency department with severe UTI symptoms with abdominal symptom\\
A/P
# E Coli bacteremia with sepsis POA with SANDY/Leukocytosis, fever, hypokalemia, N/V due to right pyelonephritis
Post-sensitive bacteria
Good clinical improvement
No abdominal pain. No nausea or vomiting
Continue care on telemetry floor
Tolerating diet
Stopped IV fluid
Change Tylenol to BID.
Change antibiotic to high-dose cefepime for bacteremia
Repeat blood culture is pending
Monitor blood work, WBC count, temperature curve
CT scan did not show hydronephrosis or stone. Patient has history of stress incontinence/overactive bladder/intrinsic sphincter deficiency
#Hyponatremia,
some improvement
will allow more fluid in diet but advised to control her intake
Acute on chronic hypokalemia
Held hydrochlorothiazide
s/p IV fluid
cut back on fluid restriction
# Severe hypokalemia
Replaced and monitor
# Acute kidney injury, continue with IV fluid. Monitor for urinary retention
#CAD
No chest pain.
� Continue aspirin statin and ezetimibe
� Continue metoprolol succinate
COPD
No wheezes.
� Albuterol as needed no evidence of acute exacerbation
#Hypertension
uncontrolled
no headache or chest pain
� Continue amlodipine with hold parameters
� Will give PRN hydralazine
DVT prophylaxis�SCDs for now
CODE STATUS�full code
Total time spent to see the patient, examine the patient, review data and lab results, discuss treatment plan with patient, her son, nursing staff around 55 minutes
Anticipated Discharge: 24 - 48 hours
Subjective/Interval History
-
Date of Service: September 10, 2025
Objective Data
-
Labs:
Laboratory Results
09/10/25
06:12
WBC 13.4 H
Hgb 12.6
Hct 36.7 L
Plt Count 192 D
Sodium 133 L
Potassium 3.6
Chloride 106
Carbon Dioxide 22
BUN 23 H
Creatinine 0.9
Glucose 89
Calcium 8.2 L
Vital Signs:
Vital Signs
Temp Pulse Resp BP Pulse Ox
98.0 F 72 17 155/72 97
09/10/25 07:40 09/10/25 08:32 09/10/25 07:40 09/10/25 08:32 09/10/25 07:40
I&O
09/09/25 09/10/25 09/11/25
06:59 06:59 06:59
Intake Total 480 / 480
Balance 480 / 480
[2025-09-10 13:00] VITALS: BP 135/71; BP 140/82; BP 143/72; PULSE 73; O2SAT 98
[2025-09-10 15:20] VITALS: BP 128/57
[2025-09-10] MEDS: CRESTOR 20 MG PO (17:42)
[2025-09-10] MEDS: ZETIA 10 MG PO (17:42)
[2025-09-10] MEDS: SENOKOT-S 2 TABLET PO (21:00)
[2025-09-10 23:41] VITALS: BP 146/61
[2025-09-11] MEDS: SYNTHROID 88 MCG PO (05:55)
[2025-09-11 06:55] LABS: Hematocrit 36.9 % (37.0-47.0); Hemoglobin 12.6 g/dL (12.0-16.0); Mean Corp Hgb Conc. 34.1 g/dL (33.0-37.0); Mean Corpuscular Volume 87.6 fL (81.0-99.0); Platelet Count 258 10^3/uL (130-400); Red Cell Dist. Width 14.5 % (11.5-14.5)
[2025-09-11 07:00] VITALS: BP 136/55; BP 146/60; BP 152/61; PULSE 68; PULSE 78; PULSE 85
[2025-09-11 07:14] LABS: ALT (SGPT) 55 U/L (0-35); AST (SGOT) 58 U/L (14-36); Albumin 2.8 g/dl (3.5-5.0); Alkaline Phosphatase 116 U/L (38-126); Blood Urea Nitrogen 21 mg/dl (7-17); Calcium 8.7 mg/dl (8.4-10.2); Carbon Dioxide 26 mmol/L (22-30); Chloride 107 mmol/L (98-107); Glucose 79 mg/dl (70-99); Potassium 3.9 mmol/L (3.5-5.1); Sodium 137 mmol/L (135-145); Total Protein 5.8 g/dl (6.3-8.2); eGFR > 60.00
[2025-09-11] MEDS: STERILE WATER FOR INJECTION 20 ML IV (08:55)
[2025-09-11] MEDS: ROCEPHIN 2000 MG IV (08:55)
[2025-09-11] MEDS: TYLENOL 1000 MG PO ×2 (08:55→22:02)
[2025-09-11] MEDS: TOPROL XL 25 MG PO (08:55)
[2025-09-11] MEDS: NORVASC 7.5 MG PO (08:56)
[2025-09-11] MEDS: ASPIR LOW (ENTERIC COATED) 81 MG PO (08:56)
[2025-09-11] MEDS: FLUSH (NSS) 2 FLUSH IV (08:58)
--- NOTE | 2025-09-11 09:49 | W.PN.HOSP.TC ---
Today's Communication/Plan
-
likely dc in am
Assessment / Plan
Assessment / Plan
Physical Exam
General: tired looking but not in Distress
HEENT: Normocephalic, Moist mucous membranes and Atraumatic
Respiratory: Clear, limited.
Cardiac: S1/S2
GI: Soft, Non Distended and Normal Bowel Sounds; she reports CVT on left side more than right
Rectal: no bleeding
Musculoskeletal: No Clubbing, No Cyanosis and No Edema
Skin: No Rash
Neuro: AO x 3 and Nonfocal/grossly intact
Psych: calm.
85-year-old with presented to the emergency department with severe UTI symptoms with abdominal symptom\\
A/P
# E Coli bacteremia with sepsis POA with SANDY/Leukocytosis, fever, hypokalemia, N/V due to right pyelonephritis
Post-sensitive bacteria
Good clinical improvement
No abdominal pain. No nausea or vomiting
Tolerating diet
Stopped IV fluid
Changed Tylenol to BID.
Change antibiotic IV Rocephin discharged on cefdinir/ Keflex
Repeat blood culture is no growth
CT scan did not show hydronephrosis or stone. Patient has history of stress incontinence/overactive bladder/intrinsic sphincter deficiency
#Hyponatremia,
Resolved
Resolved
# Acute kidney injury, continue with IV fluid. Monitor for urinary retention
#CAD
No chest pain.
� Continue aspirin statin and ezetimibe
� Continue metoprolol succinate
COPD
No wheezes.
� Albuterol as needed no evidence of acute exacerbation
#Hypertension
Better controlled
no headache or chest pain
� Continue amlodipine with hold parameters
� Will give PRN hydralazine
DVT prophylaxis�SCDs for now
CODE STATUS�full code
Total time spent to see the patient, examine the patient, review data and lab results, discuss treatment plan with patient, her son, nursing staff around 57 minutes
Anticipated Discharge: Within 24 hours
Subjective/Interval History
-
Date of Service: September 11, 2025
She is feeling much better. More alert and back to normal. She is trying to ambulate no abdominal pain, much less flank pain. No dysuria. No fever. No chest pain
Objective Data
-
Labs:
Laboratory Results
09/11/25
06:09
WBC 13.8 H
Hgb 12.6
Hct 36.9 L
Plt Count 258 D
Sodium 137
Potassium 3.9
Chloride 107
Carbon Dioxide 26
BUN 21 H
Creatinine 0.8
Glucose 79
Calcium 8.7
Total Bilirubin 0.5
AST 58 H
ALT 55 H
Alkaline Phosphatase 116
Vital Signs:
Vital Signs
Temp Pulse Resp BP Pulse Ox
97.5 F 68 14 136/55 97
09/10/25 23:41 09/11/25 08:55 09/10/25 23:41 09/11/25 08:56 09/10/25 23:41
I&O
09/10/25 09/11/25 09/12/25
06:59 06:59 06:59
Intake Total 480 / 480 840 / 840
Balance 480 / 480 840 / 840
[2025-09-11] MEDS: STERILE WATER FOR INJECTION IV (10:35)
[2025-09-11 15:00] VITALS: BP 122/55
[2025-09-11 15:04] VITALS: BP 114/55; PULSE 117; O2SAT 97
[2025-09-11] MEDS: MIRALAX 17 GRAMS PO (15:29)
[2025-09-11] MEDS: CRESTOR 20 MG PO (17:43)
[2025-09-11] MEDS: ZETIA 10 MG PO (17:43)
[2025-09-11] MEDS: SENOKOT-S 2 TABLET PO (22:03)
[2025-09-11 23:00] VITALS: BP 138/62
[2025-09-11] MEDS: TUMS CHEWABLE TABLET 200 MG PO (23:04)
[2025-09-12] MEDS: ZOFRAN 4 MG IV (02:45)
[2025-09-12] MEDS: SYNTHROID 88 MCG PO (05:24)
[2025-09-12 07:25] VITALS: BP 165/59
[2025-09-12] MEDS: STERILE WATER FOR INJECTION 20 ML IV (08:02)
[2025-09-12] MEDS: ROCEPHIN 2000 MG IV (08:02)
[2025-09-12 08:03] LABS: Hematocrit 36.2 % (37.0-47.0); Hemoglobin 12.7 g/dL (12.0-16.0); Mean Corp Hgb Conc. 35.1 g/dL (33.0-37.0); Mean Corpuscular Volume 85.8 fL (81.0-99.0); Platelet Count 270 10^3/uL (130-400); Red Cell Dist. Width 14.3 % (11.5-14.5)
[2025-09-12] MEDS: TOPROL XL 25 MG PO (08:03)
[2025-09-12] MEDS: ASPIR LOW (ENTERIC COATED) 81 MG PO (08:03)
[2025-09-12] MEDS: NORVASC 7.5 MG PO (08:03)
[2025-09-12] MEDS: TYLENOL 1000 MG PO (08:04)
[2025-09-12] MEDS: DULCOLAX 10 MG RECTAL (08:19)
[2025-09-12 08:35] LABS: ALT (SGPT) 55 U/L (0-35); AST (SGOT) 53 U/L (14-36); Albumin 2.9 g/dl (3.5-5.0); Alkaline Phosphatase 105 U/L (38-126); Blood Urea Nitrogen 20 mg/dl (7-17); Calcium 9.0 mg/dl (8.4-10.2); Carbon Dioxide 23 mmol/L (22-30); Chloride 107 mmol/L (98-107); Glucose 81 mg/dl (70-99); Potassium 3.7 mmol/L (3.5-5.1); Sodium 135 mmol/L (135-145); Total Protein 5.9 g/dl (6.3-8.2); eGFR > 60.00
--- NOTE | 2025-09-12 09:10 | W.PN.HOSP.TC ---
Today's Communication/Plan
-
dc
Assessment / Plan
Assessment / Plan
Physical Exam
General: tired looking but not in Distress
HEENT: Normocephalic, Moist mucous membranes and Atraumatic
Respiratory: Clear, limited.
Cardiac: S1/S2
GI: Soft, Non Distended and Normal Bowel Sounds; she reports CVT on left side more than right
Rectal: no bleeding
Musculoskeletal: No Clubbing, No Cyanosis and No Edema
Skin: No Rash
Neuro: AO x 3 and Nonfocal/grossly intact
Psych: calm.
85-year-old with presented to the emergency department with severe UTI symptoms with abdominal symptom\\
A/P
# E Coli bacteremia with sepsis POA with SANDY/Leukocytosis, fever, hypokalemia, N/V due to right pyelonephritis
Post-sensitive bacteria
Good clinical improvement, she is feeling better, tolerating diet, no flank pain
No abdominal pain. No nausea or vomiting
Tolerating diet
WBC came down
Stopped IV fluid
Changed Tylenol to BID.
patient is anxious to leave today, repeat CBC, if WBC continues to trend down
Changed antibiotic IV Rocephin discharged on Keflex,s he requested nausea medicine if needed, given Zofran script
Repeat blood culture is no growth
CT scan did not show hydronephrosis or stone. Patient has history of stress incontinence/overactive bladder/intrinsic sphincter deficiency
#Hyponatremia,
Resolved
# Acute kidney injury, continue with IV fluid. Monitor for urinary retention
#CAD
No chest pain.
� Continue aspirin statin and ezetimibe
� Continue metoprolol succinate
#COPD
No wheezes.
� Albuterol as needed no evidence of acute exacerbation
#Hypertension
Better controlled
no headache or chest pain
� Continue home meds.
DVT prophylaxis�SCDs for now
CODE STATUS�full code
Total discharge time spent to see the patient, examine the patient, review data and lab results, discuss discharge plan with patient, nursing staff around 67 minutes
Anticipated Discharge: Today
Subjective/Interval History
-
Date of Service: September 12, 2025
She feels better
She wants to go home ANJEL , she feels ready
Objective Data
-
Labs:
Laboratory Results
09/12/25
07:43
WBC 12.4 H
Hgb 12.7
Hct 36.2 L
Plt Count 270
Sodium 135
Potassium 3.7
Chloride 107
Carbon Dioxide 23
BUN 20 H
Creatinine 0.7
Glucose 81
Calcium 9.0
Total Bilirubin 0.5
AST 53 H
ALT 55 H
Alkaline Phosphatase 105
Vital Signs:
Vital Signs
Temp Pulse Resp BP Pulse Ox
97.8 F 59 16 165/59 98
09/12/25 07:25 09/12/25 07:25 09/12/25 07:25 09/12/25 07:25 09/12/25 07:25
I&O
09/11/25 09/12/25 09/13/25
06:59 06:59 06:59
Intake Total 840 / 840 1080 / 1080
Balance 840 / 840 1080 / 1080
--- NOTE | 2025-09-12 12:10 | CM ---
Chart reviewed and patient to return to home with visiting nurses, PT.
Plan; Home with [facility]
[2025-09-12 12:18] VITALS: BP 124/63
--- NOTE | 2025-09-12 13:35 | W.DCSUMMARY ---
Discharge Summary
Discharge Data
Date of Admission: 09/07/25
Date of Discharge: 09/12/25
-
Pending Results: No
Hospital Course
85 years old female presented with weakness. She reported weakness, fatigue, loss of appetite with abdominal discomfort. She was found to have low-grade temperature with leukocytosis and infected urine. Patient was admitted for treatment of
urinary tract infection. She met the criteria of sepsis. She had Scan that showed signs of right pyelonephritis without hydronephrosis. Blood culture and urine culture came back positive for E. coli, pansensitive. Patient received intravenous
antibiotic. She started to feel better with resolution of flank pain. Her mentation improved and she felt back to baseline. She had mild kidney injury and improved after intravenous fluid. She did not have urinary retention at the hospital.
Patient was able to tolerate diet. Repeat blood culture showed no growth. Patient was advised to finish course of antibiotic orally. She was discharged on cephalexin. Patient was evaluated by physical therapy and recommended home health
services. Patient remained hemodynamically stable was discharged home in stable condition.
Discharge Plan
-
Patient Disposition: Home with Home Care
Discharge Diagnosis/Procedures: E Coli bacteremia due to right pyelonephritis
Diet: As tolerated
Referrals:
Gita Andujar MD [Family Provider, Internal Medicine]
Prescriptions:
New
cephalexin 500 mg capsule
500 mg PO QID Qty: 20 0RF
ondansetron HCl 4 mg tablet
4 mg PO BIDPRN PRN (Reason: nausea and vomiting) Qty: 10 0RF
Continued
ezetimibe 10 MG tablet
10 mg PO QPM
nitroglycerin 0.4 MG tablet, sublingual
0.4 mg sublingual [id number] PRN (Reason: chest pain)
amlodipine 5 MG tablet
5 mg PO DAILY
aspirin 81 MG tablet,delayed release (DR/EC)
81 mg PO DAILY
rosuvastatin 20 MG tablet
20 mg PO QPM
cetirizine 10 MG tablet
10 mg PO DAILY
cholecalciferol (vitamin D3) [D3 DOTS] 50 MCG tablet
50 mcg PO DAILY
levothyroxine [Tirosint] 88 MCG capsule
88 mcg PO DAILY
flaxseed-omega3,6,9-fatty acid 1 EACH capsule
1,300 mg PO BID
Patient Comments:
1000 or 1200 mg bid per pt
Align (B.infantis) 4 MG capsule
4 mg PO DAILY
Discontinued
ondansetron 4 mg tablet,disintegrating
4 mg PO Q6H PRN (Reason: nausea and vomiting) Qty: 7 0RF
Discharge Orders:
Discharge Patient (As Directed); Ordered 09/12/25
Ordered By: Gilbert Pardo
Discharge Date and Time
Print Language: YORUBA
== END 2025-09-12 13:45 | disposition home health service (06) | DRG 872 ==
LOC: 3 WEST ACU 07:06
PROVIDERS: Physician Assistant; ADMITTING PHYSICIAN Internal Medicine; ATTENDING PHYSICIAN Internal Medicine; EMERGENCY PHYSICIAN Emergency Medicine; FAMILY PHYSICIAN Internal Medicine
DX: A41.51 Sepsis due to Escherichia coli [E. coli] (principal); E87.1 Hypo-osmolality and hyponatremia; N10 Acute pyelonephritis; N17.9 Acute kidney failure, unspecified; E87.6 Hypokalemia; E86.1 Hypovolemia; K29.70 Gastritis, unspecified, without bleeding; L40.9 Psoriasis, unspecified; K82.8 Other specified diseases of gallbladder; I25.10 Atherosclerotic heart disease of native coronary artery without angina pectoris; I10 Essential (primary) hypertension; N32.81 Overactive bladder; E78.00 Pure hypercholesterolemia, unspecified; R65.20 Severe sepsis without septic shock; E03.9 Hypothyroidism, unspecified; J44.9 Chronic obstructive pulmonary disease, unspecified; E86.0 Dehydration; K21.9 Gastro-esophageal reflux disease without esophagitis; I25.2 Old myocardial infarction; Z87.891 Personal history of nicotine dependence; Z90.710 Acquired absence of both cervix and uterus; Z95.5 Presence of coronary angioplasty implant and graft; Z85.51 Personal history of malignant neoplasm of bladder; Z88.1 Allergy status to other antibiotic agents; Z88.5 Allergy status to narcotic agent; Z88.8 Allergy status to other drugs, medicaments and biological substances
CPT/HCPCS: 74177; 76700; 80048; 80053; 81003; 81015; 83605; 83690; 83735; 84484; 85025; 85027; 87040; 87077; 87086; 87154; 87186; 87205; 93005; 96374; 97116; 97162; 97167; 97530; 99285; Q9967